=== PATIENT | female | born 1945 | race Caucasian/White ===

== ENCOUNTER → 2016-10-17 | Outpatient (CLI) | payer MEDICARE ==
--- NOTE | 2016-10-17 21:18 | CONS ---
DATE OF CONSULTATION: This is a 71-year-old female patient who was [facility] by Dr. Padilla Huggins. There is a concern for this patient having obstructive sleep apnea and further advice and further work-up was requested. Note that this patient is having chronic exertional dyspnea. She is known to have coronary artery disease and she has had previous coronary intervention and stenting. She also has advanced COPD with a base FEV1 of 37% of predicted. She is chronically fatigued and tired. She is unsure if she stops breathing or she snores. She goes to bed around 11:00 p.m., wakes up at 9:30 a.m. in the morning and she averages around time 9 to 10 hours of sleep per night. No insomnia. Wakes up occasionally on and off for urination. No grinding of the teeth. No sleepwalking. No anxiety or panic attack. No gasping for air in the middle of the night. No restlessness in the lower extremity. Current Murdock score is at 8. The patient has been gaining weight as the patient has been given frequent steroid treatments for treatment of chronic obstructive pulmonary disease. PAST MEDICAL HISTORY: 1. Coronary artery disease. 2. Chronic obstructive pulmonary disease. 3. Hypothyroidism. 4. Diabetes mellitus type 2. 5. Hyperlipidemia. 6. Iron deficiency anemia. 7. History of lung cancer with a previous right lower lobe resection. Surgical history includes cardiac catheterization and stenting. Right lower lobectomy, thyroidectomy, cholecystectomy, coronary artery bypass surgery. Breast cancer status post lumpectomy. ALLERGIES: Not known. Outpatient medication list includes: 1. Advair Diskus 250/50, 1 puff twice a day. 2. Arimidex 1 mg p.o. daily. 3. Demadex 20 mg p.o. daily. 4. Crestor 10 mg p.o. daily. 5. Imdur 30 mg p.o. daily. 6. Klor-Con 10 mEq daily. 7. Losartan 50 daily. 8. Protonix 40 daily. 9. Prednisone as needed. 10. Atrovent HFA p.r.n. basis. 11. Synthroid 100 mcg p.o. daily. 12. Vitamin D3 2000 units daily. 13. Xanax 0.25 mg on a p.r.n. basis. 14. DuoNeb nebulized treatments around the clock. SOCIAL HISTORY: The patient is a nonsmoker. No history of alcoholism. No history of any IV drugs. FAMILY HISTORY: Negative for sleep breathing disorder. REVIEW OF SYSTEMS: Twelve-point review of systems was done and positive findings were all mentioned above in the history of present illness. PHYSICAL EXAMINATION: BP is 126/66, pulse 82, respirations 16, temperature 97.7, saturation 93% on room air. Weight is 178. Neck size 16 inches. BMI is 31.5. GENERAL APPEARANCE: Calm, comfortable. HEENT: There is no goiter or neck masses. LUNGS: Clear to auscultation. HEART: Heart sounds are regular rate and rhythm. Normal S1, S2. ABDOMEN: Soft, nontender. No organomegaly. EXTREMITIES: No edema. No cyanosis or clubbing. IMPRESSION: 1. Suspect obstructive sleep apnea under investigation. 2. Nocturnal oxygen desaturation mainly secondary to chronic obstructive pulmonary disease, currently on oxygen at 2 L/min nasal cannula. 3. Chronic obstructive pulmonary disease with a baseline FEV1 37% of predicted. 4. Coronary artery disease with previous coronary intervention bypass and stenting. 5. Breast cancer with a previous lumpectomy. 6. Hyperlipidemia. 7. Hypothyroidism. 8. Diabetes mellitus. PLAN: 1. My overall suspicion for obstructive sleep apnea is quite low on this patient. She is not having major hypersomnia or sleepiness during the day. Murdock score is low. She has gained some weight due to systemic steroids BMI is remains low at 31.5. 2. We will do a home sleep study looking for a screening especially for sleep breathing disorder. Meanwhile, continue oxygen at 2 liters with exception of the home sleep study day where I asked her to take herself off oxygen. Otherwise, in terms of her chronic obstructive pulmonary disease, I would recommend addition of Spiriva and this will be used in conjunction with Advair and use albuterol nebulized treatments on as-needed basis. Follow up with cardiology. Will follow up with pulmonary. 3. Will make further recommendations once the results of the home sleep study is available.
== END ==
LOC: SLEEP 13:43
PROVIDERS: ATTEND Internal Medicine Critical Care Medicine
DX: G47.33 Obstructive sleep apnea (adult) (pediatric) (principal); J44.9 Chronic obstructive pulmonary disease, unspecified; I25.10 Atherosclerotic heart disease of native coronary artery without angina pectoris; E78.5 Hyperlipidemia, unspecified; E03.9 Hypothyroidism, unspecified; E11.9 Type 2 diabetes mellitus without complications; C50.919 Malignant neoplasm of unspecified site of unspecified female breast; Z90.10 Acquired absence of unspecified breast and nipple; Z79.811 Long term (current) use of aromatase inhibitors; Z79.51 Long term (current) use of inhaled steroids; Z79.899 Other long term (current) drug therapy
CPT/HCPCS: 99211